=== PATIENT | male | born 1965 | race Caucasian/White ===

== ENCOUNTER 2020-12-24 15:37 | Inpatient (IN) | payer BC ==
[~2020-12-24] VITALS: Ht 175.3 cm; Wt 114.8 kg
[2020-12-24 16:26] LABS: HEMOGLOBIN 15.8 gm/dl (14.0-17.5); RED BLOOD COUNT 5.55 M/UL (4.20-5.50); WHITE BLOOD COUNT 7.2 K/UL (4.5-11.0)
[2020-12-24 16:43] LABS: BUN/CREATININE RATIO 13 (0-10)
[2020-12-24] MEDS ORDERED: DUPIXENT300 MG/2 M SQ (18:36)
[2020-12-24] MEDS ORDERED: ESOMEPRAZOLE MA40 MG PO (18:36)
[2020-12-24] MEDS ORDERED: MELOXICAM15 MG PO (18:37)
[2020-12-24] MEDS ORDERED: BENADRYL 25MG C25 MG PO (18:38)
[2020-12-24] MEDS ORDERED: AFRIN15 ML (18:38)
[2020-12-26] MEDS ORDERED: LOPRESSOR 25 MG25 MG PO (17:40)
[2020-12-26] MEDS ORDERED: KEFLEX750 MG PO (17:40)
[2020-12-26] MEDS ORDERED: HYDROCODON-ACE1 EAC4 PO (17:40)
== END 2020-12-27 12:42 | disposition home or self-care (01) | DRG 225 ==
LOC: ER1 15:37 → CDU 16:50 → PROG CARE 17:42
PROVIDERS: Emergency Medicine; ADMIT Internal Medicine
PROC: B24BZZ4 Ultrasonography of Heart with Aorta, Transesophageal (ICD-10-PCS; 2020-12-24)
PROC: 4A023N7 Measurement of Cardiac Sampling and Pressure, Left Heart, Percutaneous Approach (ICD-10-PCS; 2020-12-25)
PROC: B2111ZZ Fluoroscopy of Multiple Coronary Arteries using Low Osmolar Contrast (ICD-10-PCS; 2020-12-25)
PROC: 0JH608Z Insertion of Defibrillator Generator into Chest Subcutaneous Tissue and Fascia, Open Approach (ICD-10-PCS; principal; 2020-12-26)
PROC: 02HK3KZ Insertion of Defibrillator Lead into Right Ventricle, Percutaneous Approach (ICD-10-PCS; 2020-12-26)
PROC: 02H63KZ Insertion of Defibrillator Lead into Right Atrium, Percutaneous Approach (ICD-10-PCS; 2020-12-26)
DX: I47.2 Ventricular tachycardia (principal); J93.9 Pneumothorax, unspecified; I45.81 Long QT syndrome; I45.2 Bifascicular block; M06.9 Rheumatoid arthritis, unspecified; K90.0 Celiac disease; I45.10 Unspecified right bundle-branch block; I08.1 Rheumatic disorders of both mitral and tricuspid valves; Z20.822 Contact with and (suspected) exposure to COVID-19; I10 Essential (primary) hypertension; F32.9 Major depressive disorder, single episode, unspecified
CPT/HCPCS: ECHO; 33249; 71045; 80053; 82550; 82553; 83874; 84439; 84443; 84484; 85025; 93005; 93017; 93306; 93641; 99152; 99153; 99285; C1721; C1769; C1777; C1894; C1898; G0008; J1644; J1650; J2250; J3010; J3370; J7040; J7050; J7070; Q9967; U0002

== ENCOUNTER → 2020-12-24 | Outpatient (CLI) | payer BC ==
[~2020-12-24] MED LIST: AFRIN15 ML; BENADRYL 25MG C25 MG PO; DUPIXENT300 MG/2 M SQ; ESOMEPRAZOLE MA40 MG PO; HYDROCODON-ACE1 EAC4 PO; KEFLEX750 MG PO; LOPRESSOR 25 MG25 MG PO; MELOXICAM15 MG PO
== END ==
LOC: ECHO 12-10 13:00 → NM 12-10 15:00 → ECHO 13:30
DX: R94.31 Abnormal electrocardiogram [ECG] [EKG] (principal); I51.7 Cardiomegaly
CPT/HCPCS: ECHO; 93017; 93306